=== PATIENT | female | born 1970 | race Hispanic/Latino ===

== ENCOUNTER 2018-12-25 16:35 | Emergency (ER) | payer BC ==
[2018-12-25] MEDS ORDERED: HYDROCODONE/APAP 7.5/325 MG TAB ONE (18:21)
[2018-12-25] MEDS ORDERED: IBUPROFEN 400 MG TAB ONE (18:21)
--- NOTE | 2018-12-25 18:43 | RAD REPORT ---
EXAM DESCRIPTION: RAD - Knee Right 3 View - 12/25/2018 6:34 pm CLINICAL HISTORY: Knee pain following trauma COMPARISON: None. FINDINGS: No fracture, dislocation or periosteal reaction.Trace amount of joint fluid is present. No joint space narrowing. No foreign body or other soft tissue abnormality. IMPRESSION: Trace amount of joint fluid with no acute bone finding. Clinical concerns for internal derangement or occult bony injury could be further assessed with MR im aging.
--- NOTE | 2018-12-25 18:54 | EDPHYS ---
Physician Documentation [facility] Name: Ele Sal Age: 48 yrs Sex: Female : 1970 Arrival Date: 12/25/2018 Time: 16:40 Bed 11 Private MD: ED Physician Juan Manuel Jean HPI: 12/25 18:10 This 48 yrs old Female presents to ER via Wheelchair with complaints of Knee cp Injury. 18:10 The patient presents with decreased range of motion, pain, tenderness. The complaints cp affect the posterior aspect of right knee. Context: the patient is not able to bear weight, must have assistance, Problem is a result from a previous injury: No. Patient reports she started having right knee pain over past couple weeks and was seen by PCP who recommended knee brace. Patient reports she has f/u appt next week for reevaluation but was at work today and while walking heard "pop" and had immediate increased pain in back of right knee. 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 - Social history:: Smoking status: Patient/guardian denies using tobacco. - Ebola Screening: : Patient denies travel to an Ebola-affected area in the 21 days before illness onset. ROS: 18:15 Constitutional: Negative for body aches, chills, fever, poor PO intake. cp 18:15 Eyes: Negative for injury, pain, redness, and discharge. cp 18:15 ENT: Negative for drainage from ear(s), ear pain, sore throat, difficulty swallowing, difficulty handling secretions. 18:15 Cardiovascular: Negative for chest pain, edema, palpitations. 18:15 Respiratory: Negative for cough, shortness of breath, wheezing. 18:15 Abdomen/GI: Negative for abdominal pain, nausea, vomiting, and diarrhea, constipation. 18:15 Back: Negative for pain at rest, pain with movement. 18:15 MS/extremity: Positive for decreased range of motion, pain, tenderness, of the posterior aspect of right knee, Negative for deformity, erythema, paresthesias. 18:15 All other systems are negative. Exam: 18:20 Constitutional: The patient appears in no acute distress, alert, awake, non-toxic, well cp developed, well nourished. 18:20 Head/Face: Normocephalic, atraumatic. cp 18:20 Eyes: Periorbital structures: appear normal, Conjunctiva: normal, no exudate, no injection, Lids and lashes: appear normal, bilaterally. 18:20 ENT: External ear(s): are unremarkable, Nose: is normal, Mouth: is normal, Posterior pharynx: is normal, airway is patent. 18:20 Chest/axilla: Inspection: normal. 18:20 Cardiovascular: Rate: normal, Rhythm: regular. 18:20 Respiratory: the patient does not display signs of respiratory distress, Respirations: normal, no use of accessory muscles, no retractions, no splinting, no tachypnea. 18:20 Abdomen/GI: Exam negative for discomfort, distension, guarding, Inspection: abdomen appears normal. 18:20 Back: pain, is absent, ROM is normal. 18:20 Musculoskeletal/extremity: Extremities: grossly normal except: noted in the posterior aspect of right knee: decreased ROM, pain, swelling, tenderness, ROM: limited passive range of motion, in the right knee, limited passive range of motion due to pain, in the right knee, Perfusion: the extremity is normally perfused throughout, Sensation intact. 18:20 Skin: cellulitis, is not appreciated, no rash present. Vital Signs: 17:03 BP 174 / 106; Pulse 99; Resp 17; Temp 98.4(O); Pulse Ox 99% on R/A; Weight 88.45 kg tw2 (R); Height 5 ft. 2 in. (157.48 cm); Pain 10/10; 17:03 Body Mass Index 35.67 (88.45 kg, 157.48 cm) tw2 Procedures: 19:15 Splinting: Splint applied to right knee using knee immobilizer, applied by nurse. cp Examined by me, post splint application: neurovascular intact, Patient tolerated well. MDM: 17:49 Patient medically screened. cp 18:20 Differential diagnosis: dislocation, closed fracture, ligament injury, meniscus tear. cp 18:53 Data reviewed: vital signs, nurses notes, radiologic studies, plain films. 18:53 Counseling: I had a detailed discussion with the patient and/or guardian regarding: the cp historical points, exam findings, and any diagnostic results supporting the discharge/admit diagnosis, radiology results, the need for outpatient follow up, for definitive care, a orthopedic surgeon, to return to the emergency department if symptoms worsen or persist or if there are any questions or concerns that arise at home. Response to treatment: the patient's symptoms have mildly improved after treatment, and as a result, I will discharge patient. 12/25 18:04 Order name: XRAY Knee RIGHT 3 view; Complete Time: 18:47 cp 12/25 18:52 Order name: Crutches; Complete Time: 19:20 cp 12/25 18:52 Order name: Knee Immobilizer; Complete Time: 19:20 cp Administered Medications: 18:10 Drug: Ibuprofen 800 mg Route: PO; tw2 19:21 Follow up: Response: No adverse reaction tw2 18:10 Drug: Hydrocodone-Acetaminophen (7.5 mg-325 mg) 1 tabs Route: PO; tw2 19:21 Follow up: Response: No adverse reaction; Pain is decreased tw2 Disposition: 12/26 19:20 Co-signature as Attending Physician, Juan Manuel Jean MD I agree with the assessment and kdr plan of care. Disposition: 12/25/18 18:53 Discharged to Home. Impression: Pain in right knee. - Condition is Stable. - Discharge Instructions: Knee Immobilizer, Knee Pain. - Medication Reconciliation Form, Thank You Letter, Antibiotic Education, Prescription Opioid Use, Work release form, Family Work Release form. - Follow up: Jim Krueger MD; When: 2 - 3 days; Reason: Recheck today's complaints. - Problem is an ongoing problem. - Symptoms have improved. Signatures: Dispatcher [employer] EDMS Juan Manuel Jean MD MD kdr Anshu Ma PA PA cp Rosemarie Slade RN RN tw2 Corrections: (The following items were deleted from the chart) 12/25 19:22 18:53 12/25/2018 18:53 Discharged to Home. Impression: Pain in right knee. Condition is tw2 Stable. Forms are Work release form, Family Work Release, Medication Reconciliation Form, Thank You Letter, Antibiotic Education, Prescription Opioid Use. Follow up: Jim Krueger; When: 2 - 3 days; Reason: Recheck today's complaints. Problem is an ongoing problem. Symptoms have improved. cp
--- NOTE | 2018-12-25 18:54 | ER ---
Nurse's Notes [facility] Name: Ele Sal Age: 48 yrs Sex: Female : 1970 Arrival Date: 12/25/2018 Time: 16:40 Bed 11 Private MD: Diagnosis: Pain in right knee Presentation: 12/25 17:00 Presenting complaint: Patient states: i was at work, my RIGHT knee has been hurting me, tw2 i took a step today and i heard a pop in my knee and now i cant stand on it. Transition of care: patient was not received from another setting of care. Onset of symptoms was December 25, 2018. Risk Assessment: Do you want to hurt yourself or someone else? Patient reports no desire to harm self or others. Initial Sepsis Screen: Does the patient meet any 2 criteria? No. Patient's initial sepsis screen is negative. Does the patient have a suspected source of infection? No. Patient's initial sepsis screen is negative. Care prior to arrival: None. 17:00 Method Of Arrival: Wheelchair tw2 17:00 Acuity: MADAY 4 tw2 Triage Assessment: 17:02 General: Appears uncomfortable, Behavior is calm, cooperative, appropriate for age. tw2 Pain: Complains of pain in posterior aspect of right knee and right knee. Musculoskeletal: Range of motion: limited in right knee Reports pain in posterior aspect of right knee. Injury Description: denies fall, just states "i heard a pop". 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 - Social history:: Smoking status: Patient/guardian denies using tobacco. - Ebola Screening: : Patient denies travel to an Ebola-affected area in the 21 days before illness onset. Screenin:05 Abuse screen: Denies threats or abuse. Nutritional screening: No deficits noted. tw2 Tuberculosis screening: No symptoms or risk factors identified. Fall Risk None identified. Assessment: 18:05 General: Appears uncomfortable, well groomed, Behavior is cooperative, appropriate for tw2 age. Pain: Complains of pain in right knee and posterior aspect of right knee. Cardiovascular: Patient's skin is warm and dry. Respiratory: Airway is patent Respiratory effort is even, unlabored, Respiratory pattern is regular, symmetrical. GI: No signs and/or symptoms were reported involving the gastrointestinal system. : No signs and/or symptoms were reported regarding the genitourinary system. Musculoskeletal: Range of motion: limited in right knee. 19:22 Reassessment: Patient appears in no apparent distress at this time. Patient and/or tw2 family updated on plan of care and expected duration. Pain level reassessed. Patient is alert, oriented x 3, equal unlabored respirations, skin warm/dry/pink. Patient states feeling better. Vital Signs: 17:03 BP 174 / 106; Pulse 99; Resp 17; Temp 98.4(O); Pulse Ox 99% on R/A; Weight 88.45 kg tw2 (R); Height 5 ft. 2 in. (157.48 cm); Pain 10/10; 17:03 Body Mass Index 35.67 (88.45 kg, 157.48 cm) tw2 ED Course: 16:40 Patient arrived in ED. mr 17:01 Triage completed. tw2 17:01 Arm band placed on. tw2 17:07 Bed in low position. Call light in reach. Adult w/ patient. tw2 17:08 Janet Cuevas, RN is Primary Nurse. iw 17:49 Anshu Ma PA is PHCP. cp 17:49 Juan Manuel Jean MD is Attending Physician. cp 18:34 XRAY Knee RIGHT 3 view In Process Unspecified. EDMS 18:52 Jim Krueger MD is Referral Physician. cp 19:21 No provider procedures requiring assistance completed. Patient did not have IV access tw2 during this emergency room visit. Administered Medications: 18:10 Drug: Ibuprofen 800 mg Route: PO; tw2 19:21 Follow up: Response: No adverse reaction tw2 18:10 Drug: Hydrocodone-Acetaminophen (7.5 mg-325 mg) 1 tabs Route: PO; tw2 19:21 Follow up: Response: No adverse reaction; Pain is decreased tw2 Outcome: 18:53 Discharge ordered by . cp 19:21 Discharged to home via ambulance, with crutches, with significant other. tw2 19:21 Condition: stable 19:21 Discharge instructions given to patient, significant other, Instructed on discharge instructions, follow up and referral plans. safety practices, crutch walking, knee immobilizer Demonstrated understanding of instructions, follow-up care, crutch walking. 19:22 Patient left the ED. tw2 Signatures: Dispatcher [employer] EDCT FlemingRose Irene, RN Anshu Cho PA PA cp Wise, Tara, RN RN tw2
== END 2018-12-25 19:22 | disposition home or self-care (01) ==
LOC: ER 16:35
DX: M25.561 Pain in right knee (principal); I10 Essential (primary) hypertension; Z91.011 Allergy to milk products
CPT/HCPCS: 99283